=== PATIENT | female | born 1975 | race Caucasian/White ===

== ENCOUNTER 2018-12-18 09:16 | Day surgery (SDC) | payer OTHER ==
[~2018-12-18 09:16] MED LIST: ACETAMINOPHEN 1,000 MG/100 ML BTL IVPB ONE
[2018-12-18] MEDS ORDERED: SEVOFLURANE 250 ML INH ONE (09:17)
[2018-12-18] MEDS ORDERED: LIDOCAINE 2% MDV (20MG/ML) 20ML VIAL IV ONE (09:17)
[2018-12-18] MEDS ORDERED: ONDANSETRON HCL IV 4 MG/2 ML VIAL IVP ONE (09:17)
[2018-12-18] MEDS ORDERED: MIDAZOLAM HCL 2MG/2ML VIAL IV ONE (09:17)
[2018-12-18] MEDS ORDERED: FENTANYL PF 100MCG/2ML VIAL IV ONE (09:17)
[2018-12-18] MEDS ORDERED: KETOROLAC 30 MG/ML VIAL IVP ONE (09:17)
[2018-12-18] MEDS ORDERED: PROPOFOL 10 MG/ML VIAL IV ONE (09:17)
[2018-12-18] MEDS ORDERED: RINGERS SOLUTION,LACTATED 1,000 ML IV ONE ×2 (09:54→11:45)
[2018-12-18] MEDS ORDERED: BUPIVACAINE 0.25% W/EPI MPF 30ML VIAL SQ ONE (11:26)
[2018-12-18] MEDS ORDERED: FENTANYL PF 100MCG/2ML VIAL ONE (11:51)
[2018-12-18] MEDS ORDERED: FENTANYL PF 100MCG/2ML VIAL IVP ONE ×2 (11:58)
[2018-12-18] MEDS ORDERED: HYDROCODONE/APAP 5/325MG TABLET PO ONE (12:24)
--- NOTE | 2018-12-19 09:00 | Operative Note ---
DATE OF SURGERY: 12/18/2018 SURGEON: Aditya Muse DO PREOPERATIVE DIAGNOSES: 1. Torn medial meniscus of the right knee. 2. Chondromalacia of the right knee. POSTOPERATIVE DIAGNOSES: 1. Torn medial meniscus of the right knee. 2. Synovitis right knee all compartments. 3. Chondromalacia of the medial femoral condyle, right knee. OPERATION: 1. Arthroscopic partial medial meniscectomy, right knee. 2. Arthroscopic partial synovectomy, right knee. DESCRIPTION OF PROCEDURE: This 43-year-old female was taken to the operating room and placed in the supine position on the operating room table. General anesthesia was induced. The right lower extremity was elevated, exsanguinated, and the tourniquet inflated to 300 mmHg. Arthroscopic knee canseco applied. Right knee prepped with Hibiclens and draped in the usual sterile fashion. An inferolateral portal was established for the 4 mm arthroscope, and initial evaluation of the joint demonstrated normal appearance of the articular cartilage of the patella. However, there was an extensive amount of chronic synovitis present throughout the knee including the suprapatellar pouch. An inferomedial portal was established and the articular cartilage probed and found to be normal. The medial gutter also demonstrated synovitis. The medial compartment was entered, and an intense amount of synovitis was present. This was chronic. There was also evidence of a posterior horn tear with the medial meniscus, which represented approximately 2/3 of the meniscal surface. The apex of the tear being at approximately the 12-o'clock position. We resected back to the apex of the tear and then tapered in each direction to form a smooth contoured surface and debrided the synovium as well removing as much of the chronic synovitis as possible. The medial femoral condyle demonstrated early grade 2 changes with cracks and fissures running longitudinally from just below the meniscal rest stopping about 1 cm short of the center of the weightbearing surface. No instability of the articular cartilage was present, and it was not further disturbed. The intracondylar notch demonstrated the chronic synovitis but not any damage to the cruciate ligament. The lateral compartment was entered and again extensive amount of chronic synovitis was present, and this was debrided. This gave us excellent view of the lateral meniscus which did not appear to be torn. Extensive synovectomy was performed. The wound was then copiously irrigated and suctioned and the instruments were removed. The portals infiltrated with 0.25% Marcaine with epinephrine. Sutures placed in the arthroscopic puncture sites. Sterile dressings applied, and the patient taken to the recovery room in satisfactory condition. GROSS PATHOLOGY: This patient demonstrated extensive chronic synovitis of the knee as well as evidence of a torn medial meniscus. Specimen was sent for pathological analysis. Very mild grade 2 chondromalacia of the anterior articular cartilage of the medial femoral condyle extending from the meniscal rest to about 1 cm short of the center of the weightbearing surface of the medial femoral condyle. MTDD
== END 2018-12-18 12:48 | disposition home or self-care (01) ==
LOC: SUR 09:16
PROVIDERS: ATTEND Orthopaedic Surgery
DX: S83.241A Other tear of medial meniscus, current injury, right knee, initial encounter (principal); M06.9 Rheumatoid arthritis, unspecified; M65.9 Synovitis and tenosynovitis, unspecified; M94.261 Chondromalacia, right knee
CPT/HCPCS: 29881; 29876; 01400; J1885; J2405; J3010; J7120